=== PATIENT | female | born 1960 | race Caucasian/White ===

== ENCOUNTER 2017-05-16 17:00 | Emergency (ER) | payer OTHER ==
[2017-05-16] MEDS: ACETAMINOPHEN 500 MG TAB PO ×2 (19:45→19:46)
== END 2017-05-16 23:04 | disposition home or self-care (01) ==
LOC: FTE 17:00
DX: J32.9 Chronic sinusitis, unspecified (principal); R07.89 Other chest pain
CPT/HCPCS: 70450; 93005; 99284-25